=== PATIENT | female | born 2000 | race African-American/Black ===

== ENCOUNTER 2024-06-22 07:45 | Emergency (ER) | payer OTHER, MEDICAID ==
[~2024-06-22] VITALS: Ht 160 cm; Wt 64.0 kg
[2024-06-22 07:53] VITALS: O2SAT 96
[2024-06-22] MEDS ORDERED: IBUP-2029 MT (09:34)
[2024-06-22] MEDS ORDERED: METH-653 MT (09:34)
[2024-06-22] MEDS: DIAZEPAM 5 MG TABLET PO ONE (09:53)
[2024-06-22] MEDS: KETOROLAC 30MG/ML VIAL IM ONE (09:53)
[2024-06-22 09:54] VITALS: BP 124/62; PULSE 96; RESP 20; TEMP 36.72516; O2SAT 100
== END 2024-06-22 10:03 | disposition home or self-care (01) ==
LOC: ER 07:45
DX: S13.4XXA Sprain of ligaments of cervical spine, initial encounter (principal); S33.5XXA Sprain of ligaments of lumbar spine, initial encounter; X58.XXXA Exposure to other specified factors, initial encounter; Y93.89 Activity, other specified; Y92.89 Other specified places as the place of occurrence of the external cause; Y99.8 Other external cause status
CPT/HCPCS: 99283; 96372; J1885